=== PATIENT | female | born 1985 | race Caucasian/White ===

== ENCOUNTER 2017-04-22 20:11 | Emergency (ER) | payer OTHER ==
[~2017-04-22] VITALS: Ht 167.6 cm; Wt 68.0 kg
[2017-04-22] MEDS ORDERED: HYDROCORTISONE TP (20:46)
[2017-04-22] MEDS ORDERED: KEFLEX500 MG PO (20:46)
[2017-04-22 21:03] VITALS: BP 126/84
== END 2017-04-22 22:12 | disposition home or self-care (01) ==
LOC: ER 20:11
DX: L25.9 Unspecified contact dermatitis, unspecified cause (principal); F10.99 Alcohol use, unspecified with unspecified alcohol-induced disorder